=== PATIENT | female | born 1935 | race Caucasian/White ===

== ENCOUNTER → 2021-06-17 | Outpatient (CLI) | payer MEDICARE, OTHER ==
--- NOTE | 2021-06-17 11:40 | RAD ---
EXAM: Right foot, 3 views. HISTORY: Great toe cellulitis. COMPARISON: 06/01/2021. FINDINGS: 3 views of the right foot are obtained. There is bone demineralization. This limits evaluat ion of fine bony detail. There is lucency and indistinct cortex within the tuft of the right great to e on the lateral projection. There is also lucency along the base of the first distal phalanx which i s only seen on a single projection and likely due to a minimally displaced fracture. There is first m etatarsal phalangeal joint spurring. There is a small plantar spur. There is dorsal forefoot and grea t toe soft tissue swelling. IMPRESSION: 1. Lucency and indistinct cortex along the tuft of the first distal phalanx and a lateral projection. This is difficult to assess in the setting of bone demineralization. Correlate for possible osteomye litis. 2. Deformity of the base of the first distal phalanx suggesting a mildly displaced fracture. Correlat e for pain in this location. 3. Soft tissue swelling involving the forefoot and great toe. 4. Small plantar spur. Electronically signed by: Princess Curran MD (06/17/2021 11:38 AM) [id number]
== END ==
LOC: RAD 10:57
PROVIDERS: ATTEND Podiatrist
DX: M79.89 Other specified soft tissue disorders (principal); M21.6X1 Other acquired deformities of right foot; L03.031 Cellulitis of right toe
CPT/HCPCS: 73630

== ENCOUNTER → 2021-06-24 | Outpatient (CLI) | payer MEDICARE, OTHER ==
[~2021-06-24] MED LIST: GADOTERATE 5 MMOL/10ML VIAL. IVP ONE
--- NOTE | 2021-06-24 12:39 | RAD ---
EXAM: MRI right foot, attention to forefoot with and without IV contrast DATE: 06/24/2021 9:37 AM CLINICAL HISTORY: Reason: NON HEALING WOUND RIGHT GREAT TOE 18mL CLARISCAN / Spl. Instructions: / History: COMPARISON: None available. TECHNIQUE: Multiplanar, multisequence MR imaging of the right foot was performed before and after the administration of IV contrast. FINDINGS: T1 hypointense band through the middle cuneiform with mild trace edema likely from old/healing fractu re. Midfoot degenerative changes are seen. T1 marrow signal is grossly preserved. No MRI evidence for osteomyelitis. No loculated or peripherall y enhancing fluid collection is seen. Diffuse soft tissue swelling about the forefoot with mild assoc iated enhancement may be seen with cellulitis. Visualized flexor and extensor tendons are intact. No tenosynovitis. Moderate fatty atrophy and edema of intrinsic muscles of the foot may be seen with den ervation myositis. Soft tissue swelling and ulceration overlying the medial aspect of the hallux MTP joint. No subjacent T1 marrow signal changes. Hallux MTP joint osteoarthritis. Midfoot degenerative changes are seen. IMPRESSION: 1. No MRI evidence for osteomyelitis. Of note, early osteomyelitis may be occult on MRI. 2. Prominent soft tissue changes about the forefoot, possibly cellulitis. Soft tissue changes are mo st prominent at the about the great toe. 3. Subacute to chronic fracture middle cuneiform with trace edema. 4. Multifocal degenerative changes most prominent at the midfoot and hallux MTP joint. Electronically signed by: Danyel Mejía MD (06/24/2021 12:37 PM) ANNE MARIECLARIBEL
[2021-06-25 08:59] LABS: GFR 52.6
== END ==
LOC: MRI 09:42
PROVIDERS: ATTEND Preventive Medicine Undersea and Hyperbaric Medicine
DX: S91.101A Unspecified open wound of right great toe without damage to nail, initial encounter (principal); M19.071 Primary osteoarthritis, right ankle and foot; M84.474A Pathological fracture, right foot, initial encounter for fracture; M79.89 Other specified soft tissue disorders; X58.XXXA Exposure to other specified factors, initial encounter; Y93.89 Activity, other specified; Y92.89 Other specified places as the place of occurrence of the external cause; Y99.8 Other external cause status
CPT/HCPCS: 36415; 73718; 82565; 84520; A9575